=== PATIENT | female | born 2000 | race African-American/Black ===

== ENCOUNTER 2019-08-21 12:07 | Emergency (ER) | payer BC, SELFPAY ==
[2019-08-21 12:10] VITALS: BP 117/76; PULSE 103; RESP 18; TEMP 36.5; O2SAT 98; BMI 22.4
--- NOTE | 2019-08-21 12:20 | RAD_ITS ---
STUDY: X-RAY CHEST REASON FOR EXAM: Female, 18 years old. FEVER, COUGH, SINCE WEDNESDAY. HISTORY OF ASTHMA. TECHNIQUE: PA and lateral views of the chest. COMPARISON: None. FINDINGS: The lungs are clear and expanded. There is no demonstrated pleural abnormality. Normal size heart. Normal mediastinum and johan. Normal visualized pulmonary arteries. Normal visualized aortic arch and descending thoracic aorta. Normal visualized thoracic spine. Normal visualized ribs, clavicles, and shoulders. There is no demonstrated abnormality of the visualized soft tissue structures of the upper abdomen. RAD/Chest PA and Lateral IMPRESSION: Normal x-ray examination of the chest. Electronically Signed: Curtis Rome, at 12:45 EST , Service support ,
--- NOTE | 2019-08-21 13:32 | ED.DCSUM_ITS ---
History of Present Illness Chief Complaint: Fever Narrative: She presents the emergency department with several days of headache cough myalgias runny nose and fatigue. She is a diabetic and notes her blood sugars have been elevated. She also has a history of asthma. She is out of her Xopenex. She has been able to drink plenty of fluids and is keeping her urine clear to light yellow. She is a [employer] student. Past Medical History - Allergies and Home Meds Allergies/Adverse Reactions: Allergies amoxicillin Allergy (Verified 08/21/19 12:09) Hives Penicillins [PCN] Allergy (Verified 08/21/19 12:09) Hives Primary Care Physician: SAYDA FELTON [Other] Smoking Status: Never smoker Review of Systems General: Reports: Fever, Malaise. Denies: Chills, Sweats Eyes: Denies: Visual changes - bilaterally, Diplopia ENT: Reports: Rhinorrhea. Denies: Sore throat Cardiovascular: Denies: Chest pain, Palpitations Respiratory: Reports: Dyspnea, Cough. Denies: Dyspnea on exertion Gastrointestinal: Denies: Abdominal pain, Nausea, Vomiting, Diarrhea, Melena, Hematochezia Genitourinary: Denies: Dysuria, Hematuria, Frequency Musculoskeletal: Reports: Myalgias. Denies: Back pain, Extremity Pain Skin: Denies: Rash, Wounds Neurological: Reports: Headache. Denies: Weakness, Numbness Physical Exam Vital Signs/Narrative: Vital Signs Temp Pulse Resp BP Pulse Ox 08/21/19 12:10 97.7 F L 103 H 18 117/76 98 Inital Vital Signs reviewed: Yes General: Well nourished, Well developed, No Acute Distress Head: Normocephalic, Atraumatic Eyes: Perrl, EOMI ENT: Moist mucous membranes, Nasal congestion, - - Rhinnorhea Neck: Supple, Nontender Cardiovascular: Regular rate, Regular rhythm, No murmurs Respiratory: No distress, Chest nontender, Rhonchi Abdomen: Soft, Nontender, Nondistended, Normal bowel sounds Back: Nontender, Normal Inspection Extremities: Nontender, No edema Skin: Normal color, No rash Neurological: Alert, Oriented x3, Cranial nerves II-XII grossly intact, Normal Strength, Normal Sensation Psychological: Normal affect, Normal Mood ED Disposition - Plan for ED Patient: Disposition: Non-Skill [facility]/Intermediate Care Diagnosis: Bronchitis, acute, with bronchospasm Prescriptions: Prednisone [Deltasone] 40 mg PO DAILY #10 tab Prescription Printed Levalbuterol Tartrate [Xopenex Hfa (SP)] 2 puff INHALATION Q4H PRN #1 unit PRN Reason: Bronchospasm Prescription Printed Referrals: SAYDA FELTON [Other] Additional Instructions: If You feel you need the steroids please take them and adjust your insulin as needed to control your blood sugars.
== END 2019-08-21 13:54 | disposition intermediate care facility (04) ==
PROVIDERS: Emergency Provider Emergency Medicine
DX: J20.9 Acute bronchitis, unspecified (principal); E11.9 Type 2 diabetes mellitus without complications
CPT/HCPCS: 71046; 87804; 99282

== ENCOUNTER 2020-10-08 15:07 | Outpatient (RCR) | payer BC, SELFPAY ==
[2020-10-08] MEDS: COVID-19 VACC, MRNA(PFIZER)/PF 30 MCG/0.3 ML SYRINGE IM (12:45)
[2020-10-29] MEDS: COVID-19 VACC, MRNA(PFIZER)/PF 30 MCG/0.3 ML SYRINGE IM (13:08)
== END 2020-10-08 23:59 ==
LOC: IMMUN 15:07
PROVIDERS: Visit Provider Family Medicine
DX: Z23 Encounter for immunization (principal)
CPT/HCPCS: 0001A; 0002A; 91300

== ENCOUNTER → 2021-06-30 08:20 | Outpatient (CLI) | payer BC, SELFPAY | PROVIDERS: Visit Provider Family Medicine | DX: Z23 Encounter for immunization (principal) ==